=== PATIENT | male | born 1995 | race Caucasian/White ===

== ENCOUNTER 2017-03-18 02:11 | Emergency (ER) | payer SELFPAY ==
[2017-03-18 02:15] VITALS: BP 108/71; PULSE 120; RESP 20; TEMP 97.7; O2SAT 95
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
== END 2017-03-18 04:41 | disposition home or self-care (01) ==
PROC: 0HQFXZZ Repair Right Hand Skin, External Approach (ICD-10-PCS; principal; 2017-03-18)
DX: S61.511A Laceration without foreign body of right wrist, initial encounter (principal); S61.411A Laceration without foreign body of right hand, initial encounter; W22.8XXA Striking against or struck by other objects, initial encounter

== ENCOUNTER 2018-07-05 06:54 | Emergency (ER) | payer SELFPAY ==
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
[2018-07-05] MEDS ORDERED: LORazepam 2 MG/ML INJ IVP ONE (07:07)
[2018-07-05] MEDS ORDERED: LORazepam 2 MG/ML INJ ONE (07:07)
[2018-07-05 07:36] LABS: PLATELET COUNT 355 10^3/uL (150-400)
--- NOTE | 2018-07-05 07:40 | CPEKG ---
Test Reason : OPEN Blood Pressure : / mmHG Vent. Rate : 085 BPM Atrial Rate : 086 BPM P-R Int : 190 ms QRS Dur : 103 ms QT Int : 388 ms P-R-T Axes : 070 088 051 degrees QTc Int : 462 ms Sinus rhythm Confirmed by Shantel Liang ([id number]) on 07/05/2018 7:39:22 AM Referred By: SHANTEL LIANG Confirmed By:Shantel Liang
[2018-07-05 12:21] VITALS: BP 119/68
== END 2018-07-05 12:37 | disposition home or self-care (01) ==
LOC: EDUNIT#
DX: R00.2 Palpitations (principal); F10.129 Alcohol abuse with intoxication, unspecified
CPT/HCPCS: 84484-ER; 96374; J2060